=== PATIENT | female | born 1975 | race Caucasian/White ===

== ENCOUNTER → 2020-01-03 08:48 | Outpatient (BNVA) | payer BC, SELFPAY | PROVIDERS: PCP Family Medicine; Referring Provider Family Medicine; Visit Provider Internal Medicine Gastroenterology | DX: Z76.89 Persons encountering health services in other specified circumstances (principal) ==

== ENCOUNTER 2021-01-03 08:58 | Outpatient (REF) | payer BC, SELFPAY ==
[2021-07-24 10:14] LABS: Prometheus IBD SGI SEE SEPARATE REPORT
== END 2021-01-03 08:59 | disposition home or self-care (01) ==
LOC: HO.LAB 08:58
PROVIDERS: PCP Family Medicine; Referring Provider Family Medicine; Visit Provider Nurse Practitioner Family
DX: R10.9 Unspecified abdominal pain (principal); K21.9 Gastro-esophageal reflux disease without esophagitis
CPT/HCPCS: 36415; 81479; 82397; 83520; 86140; 88346; 88350

== ENCOUNTER 2021-04-11 06:23 | Day surgery (SDC) | payer BC, SELFPAY ==
[2021-04-02 15:08] VITALS: BMI 40.3
--- NOTE | 2021-04-10 10:10 | HO.ANESPROP2 ---
Documented by User: Roxy Drake NP 04/10/21 10:11 HPI - Anesthesia Eval Consult details Narrative: 45yo F for Upper Endoscopy and Colonoscopy PMFSH Active Problems Active Problems: All Active Problems (Updated 04/02/21 @ 15:07 by Katerine Maki RN) Family hx colonic polyps (Acute) Asthma (Acute) GERD (gastroesophageal reflux disease) (Acute) Past Medical History Medical History Asthma COVID-19 vaccine series completed Family hx colonic polyps GERD (gastroesophageal reflux disease) History of COVID-19 Migraine headache Perimenopausal Family History Family History Father History of diabetes mellitus, type II Hx of heart artery stent Family history of asthma Family history of high blood pressure Mother History of high cholesterol Colon polyps Surgical History Surgical History History of Hx of endoscopy Social History Social History Housing: House Are you a primary respiratory care technician to a significant other at home: No Do you presently have visiting nurse or other home services: No Alcohol intake: current Alcohol intake frequency: 0-2 drinks per day Alcohol type: wine Patient Tobacco Use Status: Former Tobacco user Quit Date: early Tobacco use type: Cigarette Use of substances other than those prescribed or required for medical reasons: No Have you been hit, kicked, punched, or otherwise hurt by someone within the past year? If so, by whom?: No Are you DNR?: No Advance Directives: No ( is primary contact) Advance Directives Information Provided: Yes (brochure mailed) Advance Directives on File: No Recently lost weight without trying: No Eating poorly because of decreased appetite: No Nutrition Risks: No Nutritional Risk Patient : No FDLMP: perimenopause-irreg. Poor oral hygiene: No (crown-lower RT molar / Rt upper front tooth repaired X2 (BE AWARE)) Meds Allergies Allergy/AdvReac Type Severity Reaction Status Date / Time No Known Allergies Allergy Verified 01/03/21 09:11 Home Medications Medication Instructions Recorded Confirmed Last Taken Type escitalopram oxalate 20 mg tablet 20 mg PO DAILY 01/03/21 04/02/21 Unknown History fluconazole 150 mg tablet 150 mg PO ONCE 01/03/21 Unknown History mometasone-formoterol HFA 200 2 puff INHALATION QPM 01/03/21 04/02/21 Unknown History mcg-5 mcg/actuation aerosol inhaler (Dulera) montelukast 10 mg tablet 10 mg PO QAM 01/03/21 04/02/21 Unknown History naltrexone 50 mg tablet 50 mg PO DAILY 01/03/21 Unknown History zolmitriptan 2.5 mg tablet 2.5 mg PO ONCE PRN 01/03/21 04/02/21 Unknown History albuterol sulfate 90 mcg/actuation 2 puff INHALATION Q4-6H PRN 04/02/21 04/02/21 Unknown History aerosol inhaler (ProAir HFA) sucralfate 1 gram tablet (Carafate) 1 g PO QPM 04/02/21 04/02/21 Unknown History Exam Exam Date and Time: April 10, 2021 1010 Height,Weight and Vital Signs: Height 5 ft 6 in Weight 113.398 kg Assessment and Plan Assessment Anesthesia Assessment: Chart Reviewed Documented by User: Rosemarie Jimenez MD 04/11/21 07:56 [facility] Past Medical History Medical History Asthma COVID-19 vaccine series completed Family hx colonic polyps GERD (gastroesophageal reflux disease) History of COVID-19 Migraine headache Perimenopausal Family History Family History Father History of diabetes mellitus, type II Hx of heart artery stent Family history of asthma Family history of high blood pressure Mother History of high cholesterol Colon polyps Surgical History Surgical History History of Hx of endoscopy History of Problems with Anesthesia: No Social History Social History Housing: House Are you a primary respiratory care technician to a significant other at home: No Do you presently have visiting nurse or other home services: No Alcohol intake: current Alcohol intake frequency: 0-2 drinks per day Alcohol type: wine Patient Tobacco Use Status: Former Tobacco user Quit Date: early Tobacco use type: Cigarette Use of substances other than those prescribed or required for medical reasons: No Have you been hit, kicked, punched, or otherwise hurt by someone within the past year? If so, by whom?: No Are you DNR?: No Advance Directives: No ( is primary contact) Advance Directives Information Provided: Yes (brochure mailed) Advance Directives on File: No Recently lost weight without trying: No Eating poorly because of decreased appetite: No Nutrition Risks: No Nutritional Risk Patient : No FDLMP: perimenopause-irreg. Poor oral hygiene: No (crown-lower RT molar / Rt upper front tooth repaired X2 (BE AWARE)) Meds Allergies Allergy/AdvReac Type Severity Reaction Status Date / Time No Known Allergies Allergy Verified 01/03/21 09:11 Home Medications Medication Instructions Recorded Confirmed Last Taken Type escitalopram oxalate 20 mg tablet 20 mg PO DAILY 01/03/21 04/02/21 Unknown History fluconazole 150 mg tablet 150 mg PO ONCE 01/03/21 Unknown History mometasone-formoterol HFA 200 2 puff INHALATION QPM 01/03/21 04/02/21 Unknown History mcg-5 mcg/actuation aerosol inhaler (Dulera) montelukast 10 mg tablet 10 mg PO QAM 01/03/21 04/02/21 Unknown History naltrexone 50 mg tablet 50 mg PO DAILY 01/03/21 Unknown History zolmitriptan 2.5 mg tablet 2.5 mg PO ONCE PRN 01/03/21 04/02/21 Unknown History albuterol sulfate 90 mcg/actuation 2 puff INHALATION Q4-6H PRN 04/02/21 04/02/21 Unknown History aerosol inhaler (ProAir HFA) sucralfate 1 gram tablet (Carafate) 1 g PO QPM 04/02/21 04/02/21 Unknown History Exam Airway Mallampati Class: II TM Dist: >3cm Neck ROM: Full Loose/Missing/Broken Teeth: No Heart: RRR Lungs: CTA Assessment and Plan Assessment Anesthesia Assessment: Anesthesia Plan Discussed Final Anesthetic Review History of Problems with Anesthesia: No NPO: Yes ASA Class: III Final Preanesthetic Review: Meds/Allgs Chart Reviewed, Consent Obtained/Reviewed and Anes Risks/Benef Reviewed Patient Risk: Intermediate Procedure Risk: Intermediate Anesthetic Plan Anesthetic Plan: MAC: Disposition: Standard PACU
[2021-04-11 06:25] VITALS: BP 150/89; PULSE 92; RESP 17; TEMP 36.6; O2SAT 98
[2021-04-11 06:39] LABS: UPreg QC Valid YES; Urine Pregnancy NEGATIVE (NEGATIVE)
[2021-04-11] MEDS: Lactated Ringers 1,000 ML 100 ML IVCONT (06:46)
--- NOTE | 2021-04-11 07:54 | MHC.SHP ---
Pre-Procedural Eval Section A Date of Service: 04/11/21 The patient is an INPATIENT: No The History & Physical has been completed within 30 days and I have reviewed it.: No Section B Chief Complaint: screening, abdominal pain,reflux disease Details of Present Illness: Colon cancer screening, GERD, abdominal pain and bloating, diarrhea Relevant Family History (Specify if Yes): Yes Relevant Social History: None Present Medications: see Short Stay Collaborative assessment Medical History: Significant History (Asthma Family hx colonic polyps GERD (gastroesophageal reflux disease)) History of Previous Operations: Relevant previous surgery/procedure and date(s) (History of Hx of endoscopy) Allergies: Allergies Allergy/AdvReac Type Severity Reaction Status Date / Time No Known Allergies Allergy Verified 01/03/21 09:11 Review of Systems Sugical H&P ROS: Negative: Constitution, Cardiovascular and Respiratory and Yes, Specify: Gastrointestinal (Colon cancer screening, GERD, abdominal pain and bloating, diarrhea) Exam Surgical H&P Exam: Normal: Heart, Normal: Lungs, Normal: Extremities and Normal: Abdomen Plan Diagnosis/Plan: Unchanged I have reviewed the history and physical and performed a pertinent physical examination on my patient. No changes have occurred unless specified.
--- NOTE | 2021-04-11 07:55 | PM.OP ---
Brief Operative Note Date of Service: 04/11/21 Pre-op diagnosis: Colon cancer screening, GERD, abdominal pain and bloating, diarrhea Post-op diagnosis: other (GERD, Gastrirtis, gastric polyps, colon polyp, Diverticulosis) Procedure: FLEXIBLE TRANSORAL UPPER GASTROINTESTINAL ENDOSCOPY WITH BIOPSIES AND COLONOSCOPY TILL CECUM WITH BIOPSIES AND SNARE POLYPECTOMY UPPER ENDOSCOPY Consent: Indications for the procedure and potential complications of bleeding, perforation, reaction to medications and missed diagnosis were discussed with the patient and informed consent was obtained. Instrument: Olympus GIF H 190 mid size upper endoscope Monitoring: Vital signs and clinical assessment, continuous EKG monitoring, Pulse oximetry, Carbon Dioxide monitoring and blood pressure monitoring were done throughout the procedure. Procedure: The patient was placed in the left lateral decubitis position and pre-procedure medications were administered and a bite block was placed. The endoscope was inserted into the mouth and advanced under direct vision to the third part of duodenum. A careful inspection was made as the upper endoscope was withdrawn including a retroflexed examination of the proximal stomach; Findings and interventions are described below. Findings: Larynx: Normal Esophagus: Tortuous esophagus with increased tertiary contractions - biopsies obtained from proximal esophagus to check for EOE. GE junction at 38 cms. No esophagitis or Haider's. Stomach: Multiple 5 to 10 mm benign appearing polyps in the gastric body - biopsied. Mild gastric erythema. Biopsies were obtained. Grade 2 flap valve on retroflexed examination of the cardia. Duodenum: Normal bulb and descending duodenum. Biopsies were obtained from 3rd part of the duodenum to check for celiac sprue. Intervention: Biopsies as noted above COLONOSCOPY PROCEDURE NOTE Consent: Indications for the procedure and potential complications of bleeding, perforation, reaction to medications and missed diagnosis were discussed with the patient and informed consent was obtained. Instrument: Olympus PCF H 190 L variable stiffness pediatric colonoscope Monitoring: Vital signs and clinical assessment, intermittent blood pressure monitoring, continuous EKG monitoring, Pulse oximetry and Carbon Dioxide monitoring were done throughout the procedure. Colon withdrawl time was 25 minutes. Procedure: The patient was placed in the left lateral decubitis position and pre-procedure medications were administered. After a digital rectal examination of the ano-rectum, the video colonoscope was inserted into the rectum and advanced through the colon to the cecum. The colonoscope was slowly withdrawn in a retrograde panoramic fashion and the colon mucosa was carefully examined including a retroflexed view of the rectum. Findings and interventions are described below. Procedure Difficulty: : Without difficulty Findings: Terminal Ileum: Not evaluated Cecum: A 15 to 18 mm sessile polyp removed with a hot snare and retrieved with a Ashraf Net Ascending Colon: Normal Transverse Colon: Normal Descending Colon: Normal Sigmoid Colon: Moderate diverticulosis Rectum: Normal Ano-rectum: Moderate internal hemorrhoids Colon preparation: Good after some irrigations Impression and Post Procedure Diagnosis: Endoscopy Findings: ESOPHAGUS: Tortuous esophagus with increased tertiary contractions - biopsies obtained from proximal esophagus to check for EOE. GE junction at 38 cms. No esophagitis or Haider's. STOMACH: Multiple 5 to 10 mm benign appearing polyps in the gastric body - biopsied. Mild gastric erythema. Biopsies were obtained. Grade 2 flap valve on retroflexed examination of the cardia. DUODENUM: Normal bulb and descending duodenum. Biopsies were obtained from 3rd part of the duodenum to check for celiac sprue. Colonoscopy Findings: One medium sized polyp removed Random biopsies were obtained colon to check for microscopic colitis Moderate diverticulosis seen in the sigmoid colon Moderate hemorrhoids on retroflexed exam. Plan: Await pathology results Patient has an appointment on 05/02/21 in the [facility] with Jessica Ray FNP-BC . Repeat Colonoscopy interval based on path results - in 3-5 years if polyps are adenomatous and 10 years if polyps are hyperplastic. Above findings were reviewed with the patient and GERD, gastric polyps, colon polyps and diverticulosis handouts were given in the discharge area Surgeon: Praful Hines MD Anesthesia: MAC (Dr Jimenez) Was an Rotary Rig Engine Operator used for this Procedure?: Yes Rotary Rig Engine Operator: Keira Turner Estimated blood loss (mL): 0 Pathology: other (A. small bowel bxs, R/O celiac B. gastric antrum bxs, R/O H. pylori C. gastric polyp D. random esophagus bxs, R/O EOE E. cecal polyp F. random colon bxs, R/O microscopic colit) Condition: stable Disposition: PACU
--- NOTE | 2021-04-11 07:55 | W.PM.OPN ---
Operative Note Operative Note Date of Service: 04/11/21 Narrative: Pre-op diagnosis: Colon cancer screening, GERD, abdominal pain and bloating, diarrhea Post-op diagnosis:?other (GERD, Gastrirtis, gastric polyps, colon polyp, Diverticulosis) Procedure: FLEXIBLE TRANSORAL UPPER GASTROINTESTINAL ENDOSCOPY WITH BIOPSIES AND COLONOSCOPY TILL CECUM WITH BIOPSIES AND SNARE POLYPECTOMY UPPER ENDOSCOPY Consent:?Indications for the procedure and potential complications of bleeding, perforation, reaction to medications and missed diagnosis were discussed with the patient and informed consent was obtained. Instrument:?Olympus GIF H 190 mid size upper endoscope Monitoring: Vital signs and clinical assessment, continuous EKG monitoring, Pulse oximetry, Carbon Dioxide monitoring and blood pressure monitoring were done throughout the procedure. Procedure:?The patient was placed in the left lateral decubitis position and pre-procedure medications were administered and a bite block was placed. The endoscope was inserted into the mouth and advanced under direct vision to the third part of duodenum. A careful inspection was made as the upper endoscope was withdrawn including a retroflexed examination of the proximal stomach; Findings and interventions are described below. Findings: Larynx:? Normal Esophagus:?Tortuous esophagus with increased tertiary contractions - biopsies obtained from proximal esophagus to check for EOE.?? GE junction at 38 cms. No esophagitis or Haider's. Stomach:?Multiple 5 to 10 mm benign appearing polyps in the gastric body - biopsied. Mild gastric erythema. Biopsies were obtained. Grade 2 flap valve on retroflexed examination of the cardia. Duodenum:?Normal bulb and descending duodenum.? Biopsies were obtained from 3rd part of the duodenum to check for celiac sprue. Intervention:?Biopsies as noted above COLONOSCOPY PROCEDURE NOTE Consent:?Indications for the procedure and potential complications of bleeding, perforation, reaction to medications and missed diagnosis were discussed with the patient and informed consent was obtained. Instrument:?Olympus PCF H 190 L variable stiffness pediatric colonoscope Monitoring:?Vital signs and clinical assessment, intermittent blood pressure monitoring, continuous EKG monitoring, Pulse oximetry and Carbon Dioxide monitoring were done throughout the procedure. Colon withdrawl time was 25 minutes. Procedure:?The patient was placed in the left lateral decubitis position and pre-procedure medications were administered. After a digital rectal examination of the ano-rectum, the video colonoscope was inserted into the rectum and advanced through the colon to the cecum. The colonoscope was slowly withdrawn in a retrograde panoramic fashion and the colon mucosa was carefully examined including a retroflexed view of the rectum. Findings and interventions are described below. Procedure Difficulty:?: Without difficulty Findings: Terminal Ileum: Not evaluated Cecum:? A 15 to 18 mm sessile polyp removed with a hot snare and retrieved with a Ashraf Net Ascending Colon:??Normal Transverse Colon:??Normal Descending Colon:? Normal Sigmoid Colon:??Moderate diverticulosis Rectum:??Normal Ano-rectum:??Moderate internal hemorrhoids Colon preparation:? Good? after some irrigations Impression and Post Procedure Diagnosis: Endoscopy Findings: ESOPHAGUS:? Tortuous esophagus with increased tertiary contractions - biopsies obtained from proximal esophagus to check for EOE.? GE junction at 38 cms. No esophagitis or Haider's. STOMACH:? Multiple 5 to 10 mm benign appearing polyps in the gastric body - biopsied. Mild gastric erythema. Biopsies were obtained. Grade 2 flap valve on retroflexed examination of the cardia. DUODENUM: Normal bulb and descending duodenum.? Biopsies were obtained from 3rd part of the duodenum to check for celiac sprue. Colonoscopy Findings: One medium sized polyp removed Random biopsies were obtained colon to check for microscopic colitis Moderate diverticulosis seen in the sigmoid colon Moderate hemorrhoids on retroflexed exam. Plan: Await pathology results Patient has an appointment on 05/02/21 in the GI Clinic with Jessica Ray FNP-BC . Repeat Colonoscopy interval based on path results - in 3-5 years if polyps are adenomatous and 10 years if polyps are hyperplastic. Above findings were reviewed with the patient and GERD, gastric polyps, colon polyps and diverticulosis handouts were given in the discharge area Surgeon: Praful Hines MD Anesthesia:?MAC (Dr Jimenez) Was an Water Team Leader used for this Procedure?:?Yes Water Team Leader:?Keira Turner Estimated blood loss (mL):?0 Pathology:?other (A. small bowel bxs, R/O celiac? B. gastric antrum bxs, R/O H. pylori? C. gastric polyp? D. random esophagus bxs, R/O EOE? E. cecal polyp? F. random colon bxs, R/O microscopic colit) Condition:?stable Disposition:?PACU
[2021-04-11 09:15] VITALS: BP 105/72; PULSE 84; RESP 18; TEMP 36.9; O2SAT 99
[2021-04-11 09:30] VITALS: BP 104/74; PULSE 71; RESP 18; O2SAT 98
[2021-04-11 09:45] VITALS: BP 115/75; PULSE 70; RESP 16; TEMP 36.9; O2SAT 98
== END 2021-04-11 10:29 | disposition home or self-care (01) ==
PROVIDERS: Nurse Practitioner; PCP Family Medicine; Visit Provider Internal Medicine Gastroenterology
PROC: (CPT 45385; principal; 2021-04-11 07:30)
DX: Z12.11 Encounter for screening for malignant neoplasm of colon (principal); Z83.71 Family history of colonic polyps; K63.5 Polyp of colon; K57.30 Diverticulosis of large intestine without perforation or abscess without bleeding; K64.8 Other hemorrhoids; K58.2 Mixed irritable bowel syndrome; K21.9 Gastro-esophageal reflux disease without esophagitis; K29.50 Unspecified chronic gastritis without bleeding; K31.7 Polyp of stomach and duodenum; J45.909 Unspecified asthma, uncomplicated; Z79.899 Other long term (current) drug therapy; Z86.16 Personal history of COVID-19; Z87.891 Personal history of nicotine dependence
CPT/HCPCS: 45385; 45380; 43239; 81025; 88305; 88342; J2250

== ENCOUNTER → 2021-05-02 07:58 | Outpatient (BNVA) | payer BC, SELFPAY | PROVIDERS: PCP Family Medicine; Visit Provider Nurse Practitioner Family | DX: K21.9 Gastro-esophageal reflux disease without esophagitis (principal); K58.9 Irritable bowel syndrome, unspecified; Z79.899 Other long term (current) drug therapy; Z83.71 Family history of colonic polyps; Z98.890 Other specified postprocedural states | CPT/HCPCS: 99212 ==

== ENCOUNTER → 2022-05-01 07:50 | Outpatient (BNVA) | payer BC, SELFPAY | PROVIDERS: PCP Family Medicine; Referring Provider Family Medicine; Visit Provider Nurse Practitioner Family | DX: Z13.89 Encounter for screening for other disorder (principal) ==

== ENCOUNTER 2022-05-08 10:07 | Outpatient (REF) | payer BC, SELFPAY ==
[2022-05-11 23:04] LABS: Transglutaminase Ab IgG <1.0 U/mL; Transglutaminase IgA <1.0 U/mL
== END 2022-05-08 10:08 | disposition home or self-care (01) ==
LOC: HO.LAB 10:07
PROVIDERS: PCP Family Medicine; Visit Provider Nurse Practitioner Family
DX: R10.9 Unspecified abdominal pain (principal); K21.9 Gastro-esophageal reflux disease without esophagitis; Z91.09 Other allergy status, other than to drugs and biological substances
CPT/HCPCS: 36415; 86003; 86364

== ENCOUNTER 2022-09-04 07:54 | Outpatient (AMB) | payer BC, SELFPAY ==
--- NOTE | 2022-09-04 07:57 | A.OFFVIS_ITS ---
Intake Vital Signs 09/04/22 08:06 Height 5 ft 6 in Weight 242 lb 8.136 oz BMI 39.1 BP 124/70 Blood Pressure Location Lt brachial Position Sitting Pulse 82 Intake Visit Reasons: 4 month follow up Intake Note: Tomeka presents in the office as a 4 month follow up. CC: She states that she is not having any concerns. She is just here for the follow up. Senior Cyber Intelligence Analyst Required: No Allergies No Known Allergies Allergy (Verified 05/01/22 07:53) HPI 4 month follow up HPI Details LAST VISIT GERD (gastroesophageal reflux disease) Discussed with patient avoiding dietary triggers in late night snacking. Avoid eating large amount of food at the end of the day. Staying upright for minimal 3 hours after meals. Patient was encouraged to avoid food that is spicy or greasy. Patient was encouraged to take sucralfate at bedtime. IBS (irritable bowel syndrome) Patient reports occasional postprandial abdominal cramping. Patient states that sometimes she will have abdominal pain the next day when she wakes up in the morning after having a large meal. Discussed with patient avoiding eating large meals. Low FODMAP diet discussed with patient. List of food recommended as well as list of food to avoid given to patient again. I will send patient to do testing to rule out celiac. Will do RAST allergen test. Patient has multiple environmental allergies. I will see her in 4 months, sooner on as needed basis. Patient is agreeable to this plan and verbalizes understanding of instructions. She was given the opportunity to ask questions and all questions answered. ? Thank you for allowing me to participate in her care Plan Orders Orders Transglutaminase Ab IgG Today R10.9 Transglutaminase IgA Today R10.9 Rast Allergen Today K21.9 Medications New polyethylene glycol 3350 (Miralax) 17 grams PO DAILY 510 grams 2RF Discontinued methylcellulose (laxative) (Citrucel) take it with full glass of water Discontinued Reason: Patient Completed Course 500 mg PO DAILY 90 tabs 4RF TODAY'S VISIT Patient is here today for follow-up. Patient reports that since the last time seen her she has been doing much better. Transglutaminase negative, RAST allergen test also negative. Patient states that she is taking omeprazole 20 mg once day and sucralfate at bedtime. Patient states that she has been also changing her diet. She is aware of the food that is triggering her symptoms. Patient denies dyspepsia, dysphagia or odynophagia. Denies melena, hematochezia, unintentional weight loss or ribbon like stools. [facility] Medical History Asthma COVID-19 vaccine series completed Family hx colonic polyps GERD (gastroesophageal reflux disease) History of COVID-19 Migraine headache Perimenopausal Surgical History History of Hx of colonoscopy Hx of endoscopy Family History Father History of diabetes mellitus, type II Hx of heart artery stent Family history of asthma Family history of high blood pressure Mother History of high cholesterol Colon polyps Social History Housing: House Are you a primary care process manager to a significant other at home: No Do you presently have visiting nurse or other home services: No Alcohol intake: current Alcohol intake frequency: 0-2 drinks per day Alcohol type: wine Patient Tobacco Use Status: Former Tobacco user Quit Date: early Tobacco use type: Cigarette Review of Systems Const Denies weight gain and Denies weight loss ENT Reports no additional complaints, Denies dysphagia and Denies odynophagia Card Reports no additional complaints Resp Reports no additional complaints GI Denies abdominal pain, Denies belching, Denies melena, Denies bloating, Denies change in bowel habits, Denies dysphagia, Denies excessive flatus, Denies dyspepsia, Denies heartburn, Denies diarrhea, Denies loose stools, Denies nausea, Denies odynophagia and Denies vomiting Reports no additional complaints Musc Reports no additional complaints Neuro Reports no additional complaints Psych Reports no additional complaints Endo Reports no additional complaints Physical Exam Vital Signs: Last Vital Signs Pulse 82 07/21/23 08:06 BP 124/70 09/04/22 08:06 BMI result Body Mass Index 39.1 Const General: healthy appearing, no acute distress and well developed Nutritional Appearance: obese Orientation/consciousness: patient oriented x3 HEENT Head: Yes normal to inspection, Yes normocephalic and Yes atraumatic Face and sinus: Yes normal facial exam Mouth: Normal oral and palatal mucosa present Throat: Yes posterior oropharynx normal, Yes tonsils normal and Yes uvula midline Eyes General: appearance normal, both eyes and all related structures Neck Neck: Yes normal visual inspection, Yes full ROM and Yes trachea midline Thyroid: Thyroid normal Resp Effort & Inspection: normal respiratory effort, able to speak in complete sentences, no tracheal deviation and symmetric chest movement Auscultation: clear to auscultation bilaterally Cardio Rate: regular rate Heart sounds: S1 normal heart sound present and S2 normal heart sound present GI Inspection: Yes normal to inspection, No distended and Yes obesity Palpation (GI): Soft to palpation, not firm, nontender and No hepatosplenomegaly present Auscultation: normal bowel sounds General: Yes no CVA tenderness Back/Spine/Pelvis Back: no CVA tenderness Skin General skin exam: elasticity normal, turgor normal and dry skin Neuro General: patient oriented x3 Psych Appearance: grossly normal Mental Status: mental status grossly normal Speech and movement: Normal speech and movement present Affect: normal affect Assessment & Plan Assessment & Plan (1) GERD (gastroesophageal reflux disease): Code(s): K21.9 - Gastro-esophageal reflux disease without esophagitis Qualifiers: Esophagitis presence: esophagitis presence not specified Qualified Code(s): K21.9 - Gastro-esophageal reflux disease without esophagitis Plan: Continue current treatment with omeprazole 20 mg every morning and sucralfate at bedtime. Continue avoiding dietary triggers. Staying upright for minimal 3 hours after meals discussed with patient (2) IBS (irritable bowel syndrome): Code(s): K58.9 - Irritable bowel syndrome without diarrhea Qualifiers: Irritable bowel syndrome type: with both diarrhea and constipation Qualified Code(s): K58.2 - Mixed irritable bowel syndrome Plan: Continue avoiding dietary triggers. Patient is aware of which food causes her having he abdominal pain and cramping. I will see her in 1 year, sooner on as needed basis. Patient is agreeable to this plan and verbalizes understanding of instructions. She was given the opportunity to ask questions and all questions answered. Thank you for allowing me to participate in her care Medications: Changed From omeprazole 20 mg PO BID 30 days 60 caps 9RF K21.9 - Gastro-esophageal reflux disease without esophagitis To omeprazole 20 mg PO DAILY 30 days 30 caps 9RF K21.9 - Gastro-esophageal reflux disease without esophagitis Refilled omeprazole 20 mg PO DAILY 30 days 90 caps 4RF K21.9 - Gastro-esophageal reflux disease without esophagitis Coding Level of Care Code Est Pt Level 3 (11420) Diagnoses GERD (gastroesophageal reflux disease) K21.9 Esophagitis presence: esophagitis presence not specified IBS (irritable bowel syndrome) K58.2 Irritable bowel syndrome type: with both diarrhea and constipation Time Spent (min) 25 Comment 15 minutes spent with patient and additional 10 minutes spent reviewing her records
[2022-09-04 08:06] VITALS: BP 124/70; PULSE 82; BMI 39.1
== END 2022-09-04 08:33 | disposition home or self-care (01) ==
PROVIDERS: PCP Family Medicine; Visit Provider Nurse Practitioner Family
DX: K21.9 Gastro-esophageal reflux disease without esophagitis (principal); K58.2 Mixed irritable bowel syndrome
CPT/HCPCS: 99213

== ENCOUNTER → 2022-09-04 07:54 | Outpatient (BNVA) | payer BC, SELFPAY | PROVIDERS: PCP Family Medicine; Visit Provider Nurse Practitioner Family ==

== ENCOUNTER 2023-09-08 07:55 | Outpatient (AMB) | payer BC, SELFPAY ==
--- NOTE | 2023-09-08 08:01 | A.OFFVIS_ITS ---
Vital Signs 09/08/23 08:03 Height 5 ft 6 in Weight 239 lb 13.807 oz BMI 38.7 BP 128/62 Blood Pressure Location Rt brachial Position Sitting Pulse 72 Pulse Source Pulse Oximeter Pulse Oximetry (%) 98 Oxygen Delivery Method Room Air Intake Visit Reasons: 1Y follow up Intake Note: Tomeka presents to the office today for a scheduled 1 year FUV. CC; Tomeka reports today that they are doing well since their last visit, and have remained in stable condition. Pt denies any new concerns or sx at this time. Fisheries Technician Required: No Allergies No Known Allergies Allergy (Verified 09/08/23 08:02) HPI HPI 1Y follow up: Details: LAST VISIT GERD (gastroesophageal reflux disease) Continue current treatment with omeprazole 20 mg every morning and sucralfate at bedtime. Continue avoiding dietary triggers. Staying upright for minimal 3 hours after meals discussed with patient IBS (irritable bowel syndrome) Continue avoiding dietary triggers. Patient is aware of which food causes her having he abdominal pain and cramping. I will see her in 1 year, sooner on as needed basis. Patient is agreeable to this plan and verbalizes understanding of instructions. She was given the opportunity to ask questions and all questions answered. ? Thank you for allowing me to participate in her care Plan Medications Changed From omeprazole 20 mg PO BID 30 days 60 caps 9RF K21.9 - Gastro-esophageal reflux disease without esophagitis To omeprazole 20 mg PO DAILY 30 days 30 caps 9RF K21.9 - Gastro-esophageal reflux disease without esophagitis Refilled omeprazole 20 mg PO DAILY 30 days 90 caps 4RF K21.9 - Gastro-esophageal reflux disease without esophagitis TODAY'S VISIT: Patient is here today for follow-up. Patient reports that she has been doing very well since the last time she has been seen. Takes omeprazole every morning and her symptoms of acid reflux are suppressed. Patient does admit that occasionally if she eats something spicy she might have mild symptoms, however for the most part she has been doing well. Patient denies any dyspepsia, dysphagia or odynophagia. Patient denies any GI concerning symptoms today. [facility] Medical History COVID-19 vaccine series completed Perimenopausal Migraine headache History of COVID-19 Family hx colonic polyps Asthma GERD (gastroesophageal reflux disease) Surgical History Hx of colonoscopy History of Hx of endoscopy Family History Father History of diabetes mellitus, type II Hx of heart artery stent Family history of asthma Family history of high blood pressure Mother History of high cholesterol Colon polyps Social History Housing: House Are you a primary career development director to a significant other at home: No Do you presently have visiting nurse or other home services: No Alcohol intake: current Alcohol intake frequency: 0-2 drinks per day Alcohol type: wine Patient Tobacco Use Status: Former Tobacco user Tobacco use type: Cigarette Review of Systems Const Denies weight gain and Denies weight loss ENT Reports no additional complaints, Denies dysphagia and Denies odynophagia Card Reports no additional complaints Resp Reports no additional complaints GI Denies abdominal pain, Denies belching, Denies melena, Denies bloating, Denies change in bowel habits, Denies dysphagia, Denies excessive flatus, Denies dyspepsia, Denies heartburn, Denies diarrhea, Denies loose stools, Denies nausea, Denies odynophagia and Denies vomiting Musc Reports no additional complaints Neuro Reports no additional complaints Psych Reports no additional complaints Endo Reports no additional complaints Physical Exam Vital Signs: Last Vital Signs Pulse 72 09/08/23 08:03 BP 128/62 09/08/23 08:03 Pulse Ox 98 09/08/23 08:03 Oxygen Delivery Method Room Air 09/08/23 08:03 BMI result Body Mass Index 38.7 Const General: healthy appearing, no acute distress and well developed Nutritional Appearance: obese Orientation/consciousness: patient oriented x3 HEENT Head: Yes normal to inspection, Yes normocephalic and Yes atraumatic Face and sinus: Yes normal facial exam Mouth: Normal oral and palatal mucosa present Throat: Yes posterior oropharynx normal, Yes tonsils normal and Yes uvula midline Eyes General: appearance normal, both eyes and all related structures Neck Neck: Yes normal visual inspection, Yes full ROM and Yes trachea midline Thyroid: Thyroid normal Resp Effort & Inspection: normal respiratory effort, able to speak in complete sentences, no tracheal deviation and symmetric chest movement Auscultation: clear to auscultation bilaterally Cardio Rate: regular rate Heart sounds: S1 normal heart sound present and S2 normal heart sound present GI Inspection: Yes normal to inspection, No distended and Yes obesity Palpation (GI): Soft to palpation, not firm, nontender and No hepatosplenomegaly present Auscultation: normal bowel sounds General: Yes no CVA tenderness Back/Spine/Pelvis Back: no CVA tenderness Skin General skin exam: elasticity normal, turgor normal and dry skin Neuro General: patient oriented x3 Psych Appearance: grossly normal Mental Status: mental status grossly normal Speech and movement: Normal speech and movement present Affect: normal affect Assessment & Plan Assessment & Plan (1) Family hx colonic polyps: Code(s): Z83.71 - Family history of colonic polyps Category: Medical (2) GERD (gastroesophageal reflux disease): Code(s): K21.9 - Gastro-esophageal reflux disease without esophagitis Category: Medical Qualifiers: Esophagitis presence: esophagitis presence not specified Qualified Code(s): K21.9 - Gastro-esophageal reflux disease without esophagitis Plan Colonoscopy every 5 years due to family history of CRC. Continue omeprazole. Avoid dietary triggers and late night snacking. For minimum 3 hours after meals discussed with patient patient will be following up with her PCP and she can resume prescribing omeprazole. However patient was encouraged to call our office if she will have any GI concerning symptoms. Patient is agreeable to this plan and verbalizes understanding of instructions. She was given the opportunity to ask questions and all questions answered. Thank you for allowing me to participate in her care Coding Level of Care Code Est Pt Level 3 (90041) Diagnoses Family hx colonic polyps Z83.71 Gastroesophageal reflux disease, unspecified whether esophagitis present K21.9 Esophagitis presence: esophagitis presence not specified Time Spent (min) 25 Comment 15 minutes spent with patient and additional records
[2023-09-08 08:03] VITALS: BP 128/62; PULSE 72; O2SAT 98; BMI 38.7
== END 2023-09-08 08:45 | disposition home or self-care (01) ==
PROVIDERS: PCP Family Medicine; Visit Provider Nurse Practitioner Family
DX: Z83.719 Family history of colon polyps, unspecified (principal); K21.9 Gastro-esophageal reflux disease without esophagitis; Z80.0 Family history of malignant neoplasm of digestive organs
CPT/HCPCS: 99213

== ENCOUNTER → 2023-09-08 07:55 | Outpatient (BNVA) | payer BC, SELFPAY | PROVIDERS: PCP Family Medicine; Visit Provider Nurse Practitioner Family ==

== ENCOUNTER 2024-11-08 09:16 | Outpatient (AMB) | payer BC, SELFPAY ==
--- OUTSIDE RECORDS SUMMARY | 2024-11-08 10:53 | XMS_ITS | Clinical Summary ---
Author Organization [facility] Address [address] [place] [address] Phone Care Team Providers Care Validation Consultant Name Role Phone Teena Lantigua MD Primary Care Provider Medications norgestimate-et hinyl estradiol (SPRINTEC, 28,) 0.25-0.035 mg per tablet 1 tablet Orally Once a day, skip placebo pills 07/10/2014 Active ALBUTEROL INHL 2 puffs prn Act amie Medication-Free Text Zomig Active VIT 14/IRON FUM/FOLIC ( MULTIVIT WITH IRON ORAL) as directed Orally Active levonorgestrel- ethinyl estradiol (SEASONALE) 0.15-0.03 mg per tablet Take 1 tablet by mouth daily. Active Family History Medical History Relation Comments Diabetes mellitus Father 2 Hypertension Father 2 Relation Status Comments Father 1 Father 2 Social History Tobacco Use Types Packs/Day Years Used Date Smoking Tobacco: Never Assessed Education Answer Date Recorded Are you interested in more education? Not on stephon e 06/12/2022 Are you concerned about learning? Not on file 06/12/2022 No 06/12/2022 No 06/12/2022 Digital Access Answer Date Recorded No 07/13/2022 No 07/13/2022 Reliable internet access at home? Not on file 07/13/2022 Device with a working camera? Not on file Comments Unknown Sex and Gender Information Value Date Recorded Sex Assigned at Not on file Legal Sex Female 9:27 PM EDT Gender Identity Not on file Sexual Orientation Not on file Last Filed Vital Signs Vital Sign Reading Time Taken Comments Blood Pressure 120/72 10/05/2016 9:10 AM EDT Pulse - - Temperature - - Respiratory Rate - - Oxygen Saturation - - Inhaled Oxygen Concentration - - Weight 87.1 kg (192 lb) 10/05/2016 9:10 AM EDT Height - - Body Mass Index - - Plan of Treatment Not on file Medical Devices Not on file Insurance [facility] HMO POS [place] [facility] H[facility] POS [facility] HMO POS [facility] HMO POS [facility] Care Teams Validation Consultant Relationship Specialty Start Date End Date Teena Lantigua MD PCP - General 02/18/17 Additional Source Comments The information contained in this document represents components of the legal health record. It is not the complete legal health record.[facility]
== END 2024-11-08 09:23 | disposition home or self-care (01) ==
LOC: HO.HMGAL 09:16
PROVIDERS: PCP Family Medicine; Visit Provider Registered Nurse Emergency
DX: J30.89 Other allergic rhinitis (principal)
CPT/HCPCS: 95117; 95165

== ENCOUNTER 2025-01-10 08:58 | Outpatient (AMB) | payer BC, SELFPAY ==
--- OUTSIDE RECORDS SUMMARY | 2025-01-10 09:33 | XMS_ITS | Clinical Summary ---
Author Organization [facility] Address [address] [place] [address] Phone Care Team Providers Care Tool Inspector Name Role Phone Teena Lantigua MD Primary [...] file Medical Devices Not on file Insurance [facility] HMO POS CAN [place] [facility] HMO POS [facility] HMO POS [facility] Care Teams Tool Inspector Relationship Specialty Start Date End Date Teena Lantigua MD PCP - General 02/18/17 Additional Source Comments The information contained in this document represents components of the legal health record. It is not the complete legal health record.[facility]
== END 2025-01-10 09:03 | disposition home or self-care (01) ==
LOC: HO.HMGAL 08:58
PROVIDERS: PCP Family Medicine; Visit Provider Registered Nurse Emergency
DX: J30.89 Other allergic rhinitis (principal)
CPT/HCPCS: 95117; 95165